=== PATIENT | female | born 2000 | race American Indian/Alaskan Native ===

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

== ENCOUNTER 2018-06-04 17:33 | Emergency (ER) | payer OTHER ==
[2018-06-04 18:34] VITALS: RESP 18; BMI 20.5
--- NOTE | 2018-06-04 19:03 | ED PDOC ---
Arrival/HPI - General Time Seen by Provider: 06/04/18 18:30 Historian: Patient - History of Present Illness Narrative History of Present Illness (Text): 06/04/18 19:04 Patient is a 17-year-old female is currently 23 weeks , reports 1 month history of intermittent atraumatic pain to the left great toe by the first MTP joint. Otherwise: (-) redness, (-) swelling, (-) injury, (-) fever, (-) numbness, (-) other joint pain. Past Medical History - Infectious Disease Hx of Infectious Diseases: None - Psychiatric Hx Substance Use: No - Anesthesia Hx Anesthesia: No Family/Social History Family/Social History: No Known Family HX Smoking Status: Never Smoked Hx Alcohol Use: No Hx Substance Use: No Allergies/Home Meds Allergies/Adverse Reactions: Allergies No Known Allergies Allergy (Verified 02/21/17 01:01) Review of Systems - Review of Systems Constitutional: absent: Fatigue, Fevers Musculoskeletal: Arthralgias. absent: Back Pain, Neck Pain, Joint Swelling, Myalgias Skin: absent: Rash, Pruritis, Skin Lesions Physical Exam Vital Signs Temp Pulse Resp BP Pulse Ox 06/04/18 18:29 98.0 F 86 18 113/66 96 Temperature: Afebrile Blood Pressure: Normal Pulse: Regular Respiratory Rate: Normal Appearance: Positive for: Well-Appearing, Non-Toxic, Comfortable Pain Distress: None Mental Status: Positive for: Alert and Oriented X 3 - Systems Exam Lower Extremity: Present: Normal Inspection, NORMAL PULSES, Normal ROM, Neurovascularly Intact, Capillary Refill < 2 s, Other (+bunion noted to the L great toe at the 1st MTP joint. ). No: Tenderness, Swelling, Erythema, Deformity, Temperature Abnormalties Neurological: Present: GCS=15, CN II-XII Intact, Speech Normal, Motor Func Grossly Intact, Normal Sensory Function Skin: Present: Warm, Dry, Normal Color. No: Rashes Medical Decision Making ED Course and Treatment: 06/04/18 19:01 Dx of bunion d/w the patient. Advised to follow up with [facility] saw [facility] and podiatry referral provided in 1-2 days without fail. Advised to wear loose fitting shoes or wider shoes. Take tylenol for pain. Return to the emergency room at any time for any new or worsening symptoms. Patient states she fully agrees with and understands discharge instructions. States that she agrees with the plan and disposition. Verbalized and repeated discharge instructions and plan. I have given the patient opportunity to ask any additional questions. - PA / LENS ASSORTER / Resident Statement / has reviewed & agrees with the documentation as recorded. Disposition/Present on Arrival - Present on Arrival Any Indicators Present on Arrival: No History of DVT/PE: No History of Uncontrolled Diabetes: No Urinary Catheter: No History of Decub. Ulcer: No History Surgical Site Infection Following: None - Disposition Have Diagnosis and Disposition been Completed?: Yes Diagnosis: Bunion of great toe of left foot Disposition: HOME/ ROUTINE Disposition Time: 19:00 Patient Plan: Discharge Patient Problems: Current Active Problems Problem Status Onset Bunion of great toe of left foot Acute Condition: STABLE Discharge Instructions (ExitCare): Bunion (DC) Additional Instructions: Thank you for letting us take care of you today. You were treated for bunion. The emergency medical care you received today was directed at your acute symptoms. Wear wide loose fitting shoes, take tylenol for pain. It may take several days for your symptoms to resolve. Return to the Emergency Department if your symptoms worsen, do not improve, or if you have any other problems. Please contact your doctor in 2 days for re-evaluation and follow up / or call one of the physicians/clinics you have been referred to that are listed on the Patient Visit Information form that is included in your discharge packet. Bring any paperwork you were given at discharge with you along with any medications you are taking to your follow up visit. Our treatment cannot replace ongoing medical care by a primary care provider (PCP) outside of the emergency department. Thank you for allowing the [facility] team to be part of your care today. Referrals: Marielle Menchaca MD [Primary Care Provider] - Follow up with primary Yahaira Sierra DPM [Staff Provider] - Follow up with primary Forms: WORK NOTE
[2018-06-04 19:27] VITALS: BP 112/78; PULSE 82; TEMP 98.2; O2SAT 99
== END 2018-06-04 19:27 | disposition home or self-care (01) ==
LOC: ED 17:33
DX: M21.612 Bunion of left foot (principal)